=== PATIENT | female | born 1965 | race Two or more races ===

== ENCOUNTER 2016-12-24 14:14 | Emergency (ER) | payer OTHER ==
[~2016-12-24] VITALS: Ht 162.6 cm; Wt 77.1 kg
[~2016-12-24 14:14] MED LIST: BACTRIM DS TAB1 EAC1 ORAL; DANDRUFF 1% SH325 ML TP; KEFLEX500 MG ORAL; LISINOPRIL5 MG ORAL; NEOSPORIN OINTM30 GM TP; NKM
[2016-12-24 14:57] VITALS: BP 147/104
--- NOTE | 2016-12-24 15:30 | Emergency Room Report ---
History of Present Illness General Chief Complaint: General Complaint Source: Patient Present Illness HPI 51 Yo Female presents to the ED c/o frequency and wanting to be checked for C& G because she recently had unprotect intercourse with new partner, and pt. states she has frequency and has gained abdominal weight. pt. denies treatment for STD prophylaxis. denies hematuria, denies dysuria, denies vaginal d/c or skin lesions. She denies fevers chills nausea vomiting abdominal pain or history of STI. She denies . Denies CP, Palpitations, LOC, AMS, dizziness, Changes in Vision, Sensation, paresthesias, or a sudden severe headache. Allergies: Coded Allergies: CORTISONE (Verified Allergy, Unknown, 04/02/16) Patient History Past Medical History: see triage record Past Surgical History: none Pertinent Family History: none Last Menstrual Period: 12/09/2016 Now: No : 0 Para: 0 Immunizations: UTD Reviewed Nursing Documentation: PMH: Agreed, PSxH: Agreed Nursing Documentation-PMH Past Medical History: No Stated History Review of Systems All Other Systems: negative except mentioned in HPI Physical Exam Vital Signs Date Time Temp Pulse Resp B/P Pulse Ox O2 Delivery O2 Flow Rate FiO2 12/24/16 14:27 98.2 89 16 147/104 99 Sp02 EP Interpretation: reviewed, normal General Appearance: no apparent distress, alert, GCS 15, non-toxic Head: normocephalic, atraumatic Eyes: bilateral eye PERRL, bilateral eye normal inspection ENT: hearing grossly normal, normal pharynx, no angioedema, normal voice Neck: full range of motion, supple/symm/no masses Respiratory: lungs clear, normal breath sounds, speaking full sentences Cardiovascular #1: regular rate, rhythm, no edema Gastrointestinal: normal bowel sounds, non tender, soft, no guarding Rectal: deferred Genitourinary: normal inspection, no CVA tenderness Musculoskeletal: back normal, gait/station normal, normal range of motion Neurologic: alert, oriented x3, responsive, motor strength/tone normal, sensory intact, speech normal Psychiatric: judgement/insight normal, memory normal, mood/affect normal Skin: normal color, no rash, warm/dry, well hydrated Medical Decision Making PA Attestation Dr. Amado is my supervising Physician whom patient management has been discussed with. Diagnostic Impression: Primary Impression: Urinary tract infection Qualified Codes: N30.00 - Acute cystitis without hematuria Additional Impression: Contact with or exposure to venereal diseases ER Course Pt. presents to the ED c/o frequency and wanting to be checked for C&G because she recently had unprotect intercourse with new partner, and pt. states she has frequency and has gained abdominal weight. pt. denies treatment for STD prophylaxis. denies hematuria, denies dysuria, denies vaginal d/c or skin lesions. Ddx considered but are not limited to UTi , STI, G & C, trichomonas, Vaginitis , cervicitis, bartholin's gland cyst or cellulitis. Vital signs: are WNL, pt. is afebrile H&PE are most consistent with UTI will send urine for G&C as well. ORDERS: - Urine Hcg: negative -UA: many WBC's and leukocyte esterases with bacteria consistent with UTI - Urine G&C culture: Pending ED INTERVENTIONS: -250mg Rocephin IM--- PT declines IM injection--- will give pt. rx for Cefixime 400mg PO as this is recommended oral substitute. DISCHARGE: At this time pt. is stable for d/c to home. Will provide printed patient care instructions, and any necessary prescriptions. Care plan and follow up instructions have been discussed with the patient prior to discharge. Labs Test 12/24/16 14:39 12/24/16 14:57 Urine HCG, Qualitative Negative Urine Color Yellow Urine Appearance Slightly cloudy Urine pH 6 (4.5-8.0) Urine Specific [place] 1.015 (1.005-1.035) Urine Protein 1+ (NEGATIVE) Urine Glucose (UA) Negative (NEGATIVE) Urine Ketones Negative (NEGATIVE) Urine Occult Blood 3+ (NEGATIVE) Urine Nitrite Negative (NEGATIVE) Urine Bilirubin Negative (NEGATIVE) Urine Urobilinogen Normal MG/DL (0.0-1.0) Urine Leukocyte Esterase 1+ (NEGATIVE) Urine RBC 2-4 /HPF (0 - 2) Urine WBC 10-15 /HPF (0 - 2) Urine Squamous Epithelial Cells Many /LPF (NONE/OCC) Urine Bacteria None /HPF (NONE) Last Vital Signs Date Time Temp Pulse Resp B/P Pulse Ox O2 Delivery O2 Flow Rate FiO2 12/24/16 14:57 98.2 71 16 147/104 99 Disposition: HOME, SELF-CARE Condition: Stable Scripts Nitrofurantoin Monohyd/M-Cryst* (MACROBID 100 MG*) 100 Mg Capsule 100 MG ORAL EVERY 12 HOURS for 5 Days, #10 CAP Prov: Anabela Alvarado 12/24/16 Referrals: NON PHYSICIAN (PCP) Patient Instructions: Medical Screening Exam, Urinary Tract Infection, Easy-to- Read Additional Instructions: Take medications as directed. Follow up with PCP in 3-5 days Return sooner to ED if new symptoms occur, or current symptoms become worse. - Please note that this Emergency Department Report was dictated using [employer] software, occasionally this can lead to erroneous entry secondary to interpretation by the dictation equipment. Anabela Alvarado Dec 24, 2016 15:30
[2016-12-24 16:13] LABS: APPEARANCE,URINE SLIGHTLY CLOUDY; KETONES,URINE NEGATIVE (NEGATIVE); LEUKOCYTE ESTERASE ,URINE 1+ (NEGATIVE); NITRITE,URINE NEGATIVE (NEGATIVE); PH,URINE 6 (4.5-8.0); PROTEIN,URINE 1+ (NEGATIVE); UROBILINOGEN,URINE NORMAL MG/DL (0.0-1.0)
[2016-12-24 16:18] LABS: SQUAMOUS EPITHELIAL CELL,UR MANY /LPF (NONE/OCC)
[2016-12-24] MEDS ORDERED: NITROFURANTOIN100 M2 ORAL (16:22)
[2016-12-24 16:35] VITALS: BP 135/95
== END 2016-12-24 16:35 | disposition home or self-care (01) ==
LOC: EMR 15:00
DX: N39.0 Urinary tract infection, site not specified (principal); Z20.2 Contact with and (suspected) exposure to infections with a predominantly sexual mode of transmission
CPT/HCPCS: 81003; 81025; 87086; 87491; 87590; 99283

== ENCOUNTER 2018-11-26 19:57 | Emergency (ER) | payer OTHER ==
[~2018-11-26] VITALS: Ht 162.6 cm; Wt 61.2 kg
[~2018-11-26 19:57] MED LIST changes: +NITROFURANTOIN100 M2 ORAL
--- NOTE | 2018-11-26 20:09 | NUR ---
ED Nurse Note: Patient walk in c/o cold for several months, patient also reports a growth on her foot for several months. Patient needs a note for a mental health program for the foot. pt wants to follow up on STD results
[2018-11-26 20:10] VITALS: BP_SYST 173; BP_SYST 180; BP_DIAS 105; BP_DIAS 111
--- NOTE | 2018-11-26 20:10 | NUR ---
ED Nurse Note: pt denies hx of HTN, pt bedside BP is 180/105 and HR at 89
[2018-11-26] MEDS ORDERED: ATHLETIC FOOT C30 GM TOPIC (20:54)
[2018-11-26 21:00] VITALS: BP 180/105
--- NOTE | 2018-11-26 21:00 | NUR ---
ER DISCHARGE NOTE: Patient is cleared to be discharged per ERMD, pt is aox4, on room air, with stable vital signs. pt was given dc and prescription instructions, pt was able to verbalize understanding, pt id band removed. pt is able to ambulate with steady gait. pt took all belongings.
--- NOTE | 2018-11-26 21:06 | Emergency Room Report ---
History of Present Illness General Chief Complaint: Upper Respiratory Illness Source: Patient Present Illness HPI Patient is a 53-year-old female presented after increased foot discomfort. Patient states that she had several weeks of increased burning sensation to her feet. She reports having prior lesion to the bottom of her foot which had increased discomfort. Patient is requesting a note to restrictions from her living facility. Patient stated that she had previously been tested positive for STD in the past and had been treated with antibiotics and wanted a repeat check.Patient denies any new symptoms. Allergies: Coded Allergies: CORTISONE (Verified Allergy, Unknown, 04/02/16) Patient History Past Medical History: see triage record Last Menstrual Period: 11/15/2018 Now: No Reviewed Nursing Documentation: PMH: Agreed; PSxH: Agreed Nursing Documentation-PMH Past Medical History: No Stated History Review of Systems ENT: Reports: nose congestion Skin: Reports: other - foot pain Physical Exam Vital Signs Date Time Temp Pulse Resp B/P (MAP) Pulse Ox O2 Delivery O2 Flow Rate FiO2 11/26/18 20:03 98.8 83 16 173/111 99 Room Air General Appearance: well appearing, no apparent distress, alert, GCS 15 ENT: hearing grossly normal Cardiovascular #1: normal peripheral pulses, regular rate, rhythm, no edema Gastrointestinal: non tender, soft Musculoskeletal: normal inspection Neurologic: normal inspection, alert Skin: other - right foot skin erythema, yellowing and thickening Medical Decision Making Diagnostic Impression: Primary Impression: Tinea pedis ER Course Patient presented for foot rash. Differential diagnosis include was not limited to callus, eczema, tinea pedis among others. Patient has a benign exam and does not appear to require any further imaging or laboratory testing at this time. Patient does not appear to have any emergent medical condition. Patient appears to be stable without any restrictions. Patient was advised outpatient primary care evaluation for recheck of STDs and foot as indicated. Last Vital Signs Date Time Temp Pulse Resp B/P (MAP) Pulse Ox O2 Delivery O2 Flow Rate FiO2 11/26/18 20:10 98.8 89 18 180/105 99 Room Air Status: unchanged Disposition: HOME, SELF-CARE Condition: Stable Scripts Clotrimazole* (ATHLETIC FOOT CREAM*) 30 Gm Cream..g. 1 APPLIC TOPIC TWICE A DAY, #30 GM Prov: Anuj Amado MD 11/26/18 Patient Instructions: Athlete's Foot Additional Instructions: Follow up with your primary care physician for recheck in the next few days. Anuj Amado MD Nov 26, 2018 21:06
== END 2018-11-26 21:00 | disposition home or self-care (01) ==
LOC: EMR 20:33
DX: B35.3 Tinea pedis (principal)
CPT/HCPCS: 99282